=== PATIENT | male | born 2000 | race African-American/Black ===

== ENCOUNTER 2022-03-04 18:38 | Emergency (ER) | payer MEDICARE ==
[~2022-03-04] VITALS: Ht 185.4 cm; Wt 82.3 kg
[2022-03-04] MEDS ORDERED: KETOROLAC TROMETHAMINE 30 MG/ML VIAL IV STA (19:01)
[2022-03-04] MEDS ORDERED: KETOROLAC TROMETHAMINE 30 MG/ML VIAL ONE (19:57)
[2022-03-04] MEDS ORDERED: AZITHROMYCIN 250 MG TAB PO ONE (20:15)
[2022-03-04] MEDS ORDERED: CEFDINIR300 MG PO (20:19)
[2022-03-04] MEDS ORDERED: DOXYCYCLINE HY100 MG PO (20:19)
[2022-03-04] MEDS ORDERED: VALTREX1000 MG PO (20:19)
[2022-03-04] MEDS ORDERED: SODIUM CHLORIDE 0.9% 100 ML ONE (20:21)
[2022-03-04] MEDS ORDERED: AZITHROMYCIN 250 MG TAB ONE (20:21)
[2022-03-04] MEDS ORDERED: CEFTRIAXONE 500 MG VIAL ONE ×2 (20:21)
[2022-03-04] MEDS ORDERED: IBUPROFEN800 MG PO (20:21)
== END 2022-03-04 20:48 | disposition home or self-care (01) ==
LOC: FSED 18:48
DX: M54.50 Low back pain, unspecified (principal); N30.90 Cystitis, unspecified without hematuria; A60.00 Herpesviral infection of urogenital system, unspecified
CPT/HCPCS: 74176; 80048; 80076; 81003; 85025; 99284; J0696; J1885; J7050